=== PATIENT | female | born 1995 | race Caucasian/White ===

== ENCOUNTER 2018-06-27 11:06 | Inpatient (IN) | payer OTHER ==
[~2018-06-27] VITALS: Ht 170.2 cm; Wt 56.7 kg
[2018-06-27 12:16] LABS: ABSOLUTE BASOPHIL COUNT 0 /CUMM (0.0-0.2); ABSOLUTE EOSINOPHIL COUNT 0.1 /CUMM (0.0-0.7); ABSOLUTE LYMPH COUNT 0.8 /CUMM (1.2-3.4); ABSOLUTE MONOCYTE COUNT 1.5 /CUMM (0.10-0.60); BASOPHIL % 0.1 % (0.0-2.0); EOSINOPHIL % 0.7 % (0-5); GRANULOCYTE % 80.7 % (42.2-75.2); HEMATOCRIT 46.3 % (37-47); MEAN CORPUSCULAR HGB 29.6 PG (27.0-31.0); MEAN CORPUSCULAR HGB CONC 33.6 G/DL (33.0-37.0); MEAN CORPUSCULAR VOLUME 88.3 FL (81.0-99.0); MEAN PLATELET VOLUME 8.6 FL (7.4-10.4); PLATELET COUNT 266 /CUMM (130-400); RBC DISTRIBUTION WIDTH 12.2 % (11.5-14.5); RED BLOOD CELL CT 5.25 /CUMM (4.20-5.40); WHITE BLOOD CELL COUNT 12.4 /CUMM (4.8-10.8)
[2018-06-27] MEDS ORDERED: ZOFRAN ODT4 M1 SL (13:54)
--- NOTE | 2018-06-27 14:16 | CT SCAN REPORT ---
EXAMINATION: CT ABDOMEN AND PELVIS WITH CONTRAST CLINICAL INFORMATION: Diffuse abdominal pain, diarrhea, fever. Presumptive diagnosis: colitis or appendicitis COMPARISON: None TECHNIQUE: Multidetector volumetric imaging was performed of the abdomen and pelvis following IV administration of 95 mL of Optiray 320 intravenous contrast. Sagittal and coronal reformatted images were obtained on the technologist's workstation. DLP: 267 mGy-cm FINDINGS: LUNG BASES: 3 mm groundglass opacity nodule in the lateral periphery of the left lower lobe, image 89/736. 3 mm left lower lobe nodule in image 55/736. LIVER, GALLBLADDER, AND BILIARY TREE: The liver is normal in size, shape, and attenuation. No focal hepatic lesion or biliary ductal dilatation is present. The gallbladder is unremarkable with no evidence of radiopaque gallstones, gallbladder wall thickening, or obvious pericholecystic inflammatory changes. PANCREAS: Normal. SPLEEN: Normal. ADRENAL GLANDS: Normal. KIDNEYS AND URETERS: The kidneys are normal in size, shape, and attenuation. No hydronephrosis, hydroureter, or calculi seen. No perinephric stranding. BLADDER: Unremarkable. GASTROINTESTINAL TRACT: The stomach is largely collapsed. Small bowel nondilated. There is severe wall thickening of the right colon with adjacent pericolonic fluid. There is moderate to severe wall thickening throughout the remainder of the colon as far distally as the rectum. ABDOMINAL WALL: No significant hernia is appreciated. LYMPH NODES: Normal. VASCULAR: Unremarkable. PELVIC VISCERA: 3.4 cm likely physiologic right ovarian cyst. There is a small amount of free fluid in the pelvic cul-de-sac, that measures simple fluid density, presumably physiologic. Normal CT appearance of the uterus and ovaries. OSSEOUS STRUCTURES: Unremarkable. IMPRESSION: There is a pancolitis with severe wall thickening of the right colon and adjacent pericolonic fluid and slightly lesser moderate to severe wall thickening in the remainder of the colon is far distally as the rectum. The findings are nonspecific and could be infectious, inflammatory, or other etiologies. An antibiotic associated colitis could have this appearance. There are 2 small, 3 mm left lower lobe nodules, one of which is groundglass opacity. Without a history of known primary malignancy, these are almost certainly benign infectious or inflammatory nodules in a patient this age. Typically in the absence of a known history of primary malignancy, no follow-up is required.
--- NOTE | 2018-06-27 14:33 | ED GI/GU/ABDOMINAL COMPLAINT ---
History of Present Illness General Chief Complaint: Nausea, Vomiting, Diarrhea Stated Complaint: NVD Source: patient, family Exam Limitations: no limitations Vital Signs & Intake/Output Vital Signs & Intake/Output Vital Signs Date Time Temp Pulse Resp B/P B/P Pulse O2 O2 Flow FiO2 Mean Ox Delivery Rate 06/27 1538 98.2 56 18 109/66 100 Room Air 06/27 1331 98.4 55 18 101/58 100 Room Air 06/27 1133 96.8 86 18 106/70 98 Room Air Allergies Coded Allergies: lactose (INTOLERANT PER PT 06/27/18) Reconcile Medications Ondansetron (Zofran Odt) 4 MG TAB.RAPDIS 1 TAB SL TID PRN N/V (Reported) Triage Note: PT FROM HOME C/O [facility]A SINCE THURSDAY. PT STATES UNKNOWN AMOUNT OF EPISODE SINCE THEN, HAS BEEN IN [facility] AND UNKNOWN IF PICKED UP A "STOMACH BUG" PER PT. PT VSS. PTS MOTHER STATES SHE WAS SEEN AT A WALK IN CLINIC ON THURSDAY NIGHT WHERE SHE WAS TOLD HER BP WAS LOW, PT SEEN AT [place] AND D/C'D. PT ALSO STATES FEBRILE AT HOME, 96.8 IN TRIAGE. NO ACUTE DISTRESS NOTED. Triage Nurses Notes Reviewed? yes LMP (ages 10-50): unknown ? N Is pt currently ? No Onset: Abrupt Duration: day(s): (3-4), constant, continues in ED, getting worse Timing: single episode today Quality/Severity: cramping Severity Numbers: 7 Location: generalized abdomen Radiation: no radiation Activities at Onset: none Prior Abdominal Problems: similar symptoms Past Sexual History: Unobtainable at this time No Modifying Factors: none Associated Symptoms: abdominal pain, diarrhea HPI: 22-year-old female with no past medical history of present evaluation of abdominal pain and diarrhea. Patient states the pain started 4 days ago and been persistent. She reports the pain is located in the lower abdomen and does not radiate. Associated with watery diarrhea. No blood no melena. Patient reports nausea but no vomiting. She does report low-grade fevers at home revealed with Tylenol. She denies recent abdominal surgery, recent travel or recent antibiotics sick contacts. She does note that she has had similar symptoms on several occasions that she thinks may be related to IBS or lactose intolerance. She has never been seen for this. Past History Travel History Traveled to [place] past 21 day No Medical History Any Pertinent Medical History? see below for history Neurological: NONE EENT: NONE Cardiovascular: NONE Respiratory: NONE Gastrointestinal: NONE Hepatic: NONE Renal: NONE Musculoskeletal: NONE Psychiatric: NONE Endocrine: NONE Surgical History Surgical History: non-contributory Psychosocial History What is your primary language Bulgarian Tobacco Use: Never used Family History Hx Contributory? No Review of Systems Review of Systems Constitutional: Reports: fever, weakness. EENTM: Reports: no symptoms. Respiratory: Reports: no symptoms. Cardiovascular: Reports: no symptoms. GI: Reports: see HPI, abdominal pain, diarrhea, nausea. Genitourinary: Reports: no symptoms. Musculoskeletal: Reports: no symptoms. Skin: Reports: no symptoms. Neurological/Psychological: Reports: no symptoms. Hematologic/Endocrine: Reports: no symptoms. Immunologic/Allergic: Reports: no symptoms. All Other Systems: Reviewed and Negative Physical Exam Physical Exam General Appearance: well developed/nourished, no apparent distress, alert, awake , thin Head: atraumatic, normal appearance Eyes: Bilateral: normal appearance, PERRL, EOMI. Ears, Nose, Throat, Mouth: hearing grossly normal, moist mucous membrane Neck: normal inspection, supple, full range of motion Respiratory: normal breath sounds, chest non-tender, no respiratory distress, lungs clear Cardiovascular: regular rate/rhythm, normal peripheral pulses Peripheral Pulses: 2+ radial (R), 2+ radial (L) Gastrointestinal: normal bowel sounds, soft, no organomegaly, tenderness ( diffuse lower abdominal) Back: normal inspection, normal range of motion Extremities: normal range of motion Neurologic/Psych: no motor/sensory deficits, awake, alert, oriented x 3, normal gait, normal mood/affect Skin: intact, normal color, warm/dry Core Measures ACS in differential dx? No Sepsis Present: No Sepsis Focused Exam Completed? No Progress Differential Diagnosis: appendicitis, biliary colic, bowel obstruction, cholecystitis, diverticulitis, gastritis, ischemic bowel, inflamm bowel dis, intrauterine , kidney stone, ovarian cyst, ovarian torsion, pancreatitis, PID/cervicitis, peptic ulcer, PUD/GERD, SBO, UTI/pyelo Plan of Care: Orders Procedure Date/time Status Clear Liquid Diet 06/28 B Active BASIC ELECTROLYTES PLUS BUN&CR 06/28 0600 Active Lab Add-on Test 06/27 174 Active OVA AND PARASITE EXTENDED 06/27 1742 Active C.DIFFICILE 06/27 1742 Active Pathway - chart 06/27 1739 Active Patient Data 06/27 1739 Active ED Holding Orders 06/27 1714 Active Admit to inpatient 06/27 1714 Active Code Status 06/27 1714 Active Add-on Test (ER Only) 06/27 1656 Active CULTURE,STOOL 06/27 1656 Active OVA AND PARASITE ANTIGENS 06/27 1656 Active C.DIFFICILE 06/27 1656 Active Add-on Test (ER Only) 06/27 1507 Active Add-on Test (ER Only) 06/27 1246 Active LACTIC ACID 06/27 1200 Complete HUMAN BETA HCG SCREEN 06/27 1200 Complete C-REACTIVE PROTEIN 06/27 1200 Complete URINE 06/27 1113 Complete URINALYSIS 06/27 1113 Complete LIPASE 06/27 1113 Complete COMPREHENSIVE METABOLIC PANEL 06/27 1113 Complete CBC WITHOUT DIFFERENTIAL 06/27 1113 Complete House Staff 06/27 UNK Active VTE Mechanical Prophylaxis 06/27 UNK Active Vital Signs 06/27 UNK Active Current Medications Sig/Donal Start time Last Medication Dose Stop Time Status Admin Enoxaparin Sodium 40 MG DAILY 06/28 0900 UNVr (Lovenox) Metronidazole 500 MG IQ8 06/28 0000 UNVr (Flagyl) N/A 1 UNIT (No Carrier) Ciprofloxacin 400 MG Q12 06/27 2100 UNVr (Cipro) Dextrose/Water 200 ML (D5W) Acetaminophen 650 MG Q6P PRN 06/27 1745 UNVr (Tylenol) Dicyclomine HCl 20 MG 4 TIMES/DAY PRN 06/27 1745 UNVr (Bentyl) Polyethylene Glycol 1 GAL ONCE ONE 06/27 174 UNVr (Golytely Liq 4000 06/27 1746 Ml) Laboratory Tests 06/27/18 1454: Urine Color YEL, Urine Clarity CLEAR, Urine pH 7.0, Ur Specific [place] <= 1.005 , Urine Protein TRACE H, Urine Ketones 40 H, Urine Nitrite NEG, Urine Bilirubin NEG, Urine Urobilinogen 0.2, Ur Leukocyte Esterase NEG, Ur Microscopic SEDIMENT EXAMINED, Urine RBC RARE, Ur Epithelial Cells MOD H, Urine Hemoglobin NEG, Urine Glucose NEG, Urine Test NEGATIVE 06/27/18 1200: Lactic Acid 1.0 06/27/18 1200: Anion Gap 14, Estimated GFR > 60, BUN/Creatinine Ratio 7.5, Glucose 89, Calcium 9.0, Total Bilirubin 1.0, AST 14, ALT 25, Alkaline Phosphatase 54, C-Reactive Prot, Quant > 9.0 H, Total Protein 6.6, Albumin 3.9, Globulin 2.7, Albumin/ Globulin Ratio 1.4, Lipase 36, Total Beta HCG NEGATIVE, CBC w Diff NO MAN DIFF REQ, RBC 5.25, MCV 88.3, MCH 29.6, MCHC 33.6, RDW 12.2, MPV 8.6, Gran % 80.7 H, Lymphocytes % 6.7 L, Monocytes % 11.8 H, Eosinophils % 0.7, Basophils % 0.1, Absolute Granulocytes 10.0 H, Absolute Lymphocytes 0.8 L, Absolute Monocytes 1.5 H, Absolute Eosinophils 0.1, Absolute Basophils 0 Microbiology 06/27 1656 STOOL: Cryptosporidium Antigen - ORD 06/27 1656 STOOL: Giardia Antigen (LAKESHIA) - ORD 06/27 1656 STOOL: Clostridium difficile Toxin A & B - ORD 06/27 1656 STOOL: Stool Culture - ORD Patient is here for evaluation of lower abdominal pain and diarrhea symptoms started 4 days prior to be getting worse. She is afebrile here vital signs are stable. Labs CT scan ordered patient medicated with fluids Zofran and Toradol. Labs a white count of 12,000 and a slightly decreased potassium at 3.4 otherwise they're unremarkable. CT scan shows a severe pancolitis. No abscess or perforation. Spoke with Dr. Mendez from gastroenterology who feels the patient needs a urgent scope. The patient will be admitted to the hospital for IV fluids and serial labs stool cultures and colonoscopy. Case discussed Dr. BAER HE agrees Diagnostic Imaging: Viewed by Me: CT Scan. Discussed w/RAD: CT Scan. Radiology Impression: PATIENT: CHARY TERESA PRESENT AGE: 22 PATIENT ACCOUNT NO: [id number] : 94 LOCATION: [facility] ORDERING PHYSICIAN: Tomás EWING SERVICE DATE: 06/27/18 EXAM TYPE: CAT - CT ABD & PELVIS W IV CONTRAST EXAMINATION: CT ABDOMEN AND PELVIS WITH CONTRAST CLINICAL INFORMATION: Diffuse abdominal pain, diarrhea, fever. Presumptive diagnosis: colitis or appendicitis COMPARISON: None TECHNIQUE: Multidetector volumetric imaging was performed of the abdomen and pelvis following IV administration of 95 mL of Optiray 320 intravenous contrast. Sagittal and coronal reformatted images were obtained on the technologist's workstation. DLP: 267 mGy-cm FINDINGS: LUNG BASES: 3 mm groundglass opacity nodule in the lateral periphery of the left lower lobe, image 89/736. 3 mm left lower lobe nodule in image 55/736. LIVER, GALLBLADDER, AND BILIARY TREE: The liver is normal in size, shape, and attenuation. No focal hepatic lesion or biliary ductal dilatation is present. The gallbladder is unremarkable with no evidence of radiopaque gallstones, gallbladder wall thickening, or obvious pericholecystic inflammatory changes. PANCREAS: Normal. SPLEEN: Normal. ADRENAL GLANDS: Normal. KIDNEYS AND URETERS: The kidneys are normal in size, shape, and attenuation. No hydronephrosis, hydroureter, or calculi seen. No perinephric stranding. BLADDER: Unremarkable. GASTROINTESTINAL TRACT: The stomach is largely collapsed. Small bowel nondilated. There is severe wall thickening of the right colon with adjacent pericolonic fluid. There is moderate to severe wall thickening throughout the remainder of the colon as far distally as the rectum. ABDOMINAL WALL: No significant hernia is appreciated. LYMPH NODES: Normal. VASCULAR: Unremarkable. PELVIC VISCERA: 3.4 cm likely physiologic right ovarian cyst. There is a small amount of free fluid in the pelvic cul-de-sac, that measures simple fluid density, presumably physiologic. Normal CT appearance of the uterus and ovaries. OSSEOUS STRUCTURES: Unremarkable. IMPRESSION: There is a pancolitis with severe wall thickening of the right colon and adjacent pericolonic fluid and slightly lesser moderate to severe wall thickening in the remainder of the colon is far distally as the rectum. The findings are nonspecific and could be infectious, inflammatory, or other etiologies. An antibiotic associated colitis could have this appearance. There are 2 small, 3 mm left lower lobe nodules, one of which is groundglass opacity. Without a history of known primary malignancy, these are almost certainly benign infectious or inflammatory nodules in a patient this age. Typically in the absence of a known history of primary malignancy, no follow-up is required. DICTATED BY: Eduardo Hair MD DATE/TIME DICTATED:06/27/181401 SENIOR PHYSICIAN:EDSON DATE/TIME TRANSCRIBED:1401 CONFIDENTIAL, DO NOT COPY WITHOUT APPROPRIATE AUTHORIZATION. < Electronically signed in Other Vendor System> Initial ED EKG: none Departure Departure Disposition: STILL A PATIENT Condition: Stable Clinical Impression Primary Impression: Pancolitis Referrals: Unknown (PCP/Family) Departure Forms: Customer Survey General Discharge Information Admission Note Spoke With: Susan SALAZAR,[place] Documentation of Exam: Documentation of any treatments & extenuating circumstances including Concerns Regarding Discharge (functional status, medication knowledge or non-compliance, living conditions, etc.) that warrant an admission rather than observation: [GI consult, serial labs, clears, colonoscopy, stool cultures, IV fluids]
--- NOTE | 2018-06-27 17:05 | History & Physical ---
Shahrzad SALAZAR,[facility] 06/27/18 2361: General Information and HPI History of Present Illness: Ms. Teresa is a 22-year-old female with no past medical history who presents with diarrhea. Patient says that her diarrhea began and initially was a headache but progressed to weakness, dizziness, and diarrhea about 5-6 times a day. Diarrhea is nonbloody, watery, light colored at times, and sometimes floating. Over the past few years she has had frequent episodes of diarrhea that usually last less than one day but occur 2-3 times a week. She did go to an urgent care clinic on Thursday . She was given antinausea medication and sent home. The urgent care clinic then called her at home later that evening because they forgot to look at the blood pressure and noted that it was low. They told her to go to the ER for further evaluation and so they went to [place]. However, at [place] that he did not receive any intervention and was discharged from the ER early Thursday morning. Thursday, she spent sleeping most the day continuing to have diarrhea. She has had poor p.o. intake. She then came in today for further evaluation. She denies any chest pain, shortness of breath, dysuria, or rash. She is a never smoker, drinks alcohol socially. Past History Travel History Traveled to [place] past 21 day No Medical History Neurological: NONE EENT: NONE Cardiovascular: NONE Respiratory: NONE Gastrointestinal: NONE Hepatic: NONE Renal: NONE Musculoskeletal: NONE Psychiatric: NONE Endocrine: NONE Review of Systems Review of Systems Constitutional: Reports: no symptoms. EENTM: Reports: no symptoms. Cardiovascular: Reports: no symptoms. Respiratory: Reports: no symptoms. GI: Reports: see HPI. Genitourinary: Reports: no symptoms. Musculoskeletal: Reports: no symptoms. Skin: Reports: no symptoms. Neurological/Psychological: Reports: no symptoms. Hematologic/Endocrine: Reports: no symptoms. Immunologic/Allergic: Reports: no symptoms. All Other Systems: Reviewed and Negative Exam & Diagnostic Data Physical Exam General Appearance Alert, Oriented X3, Cooperative Cardiovascular Regular Rate, Normal S1, Normal S2 Lungs Clear to Auscultation Abdomen umbilical tenderness without rebound Extremities No Edema, Normal Pulses, No Tenderness/Swelling Last 24 Hrs of Labs/Abdulaziz: Laboratory Tests 06/27/18 1454: Urine Color YEL, Urine Clarity CLEAR, Urine pH 7.0, Ur Specific [place] <= 1.005 , Urine Protein TRACE H, Urine Ketones 40 H, Urine Nitrite NEG, Urine Bilirubin NEG, Urine Urobilinogen 0.2, Ur Leukocyte Esterase NEG, Ur Microscopic SEDIMENT EXAMINED, Urine RBC RARE, Ur Epithelial Cells MOD H, Urine Hemoglobin NEG, Urine Glucose NEG, Urine Test NEGATIVE 06/27/18 1200: Lactic Acid 1.0 06/27/18 1200: Anion Gap 14, Estimated GFR > 60, BUN/Creatinine Ratio 7.5, Glucose 89, Calcium 9.0, Total Bilirubin 1.0, AST 14, ALT 25, Alkaline Phosphatase 54, C-Reactive Prot, Quant > 9.0 H, Total Protein 6.6, Albumin 3.9, Globulin 2.7, Albumin/ Globulin Ratio 1.4, Lipase 36, Total Beta HCG NEGATIVE, CBC w Diff NO MAN DIFF REQ, RBC 5.25, MCV 88.3, MCH 29.6, MCHC 33.6, RDW 12.2, MPV 8.6, Gran % 80.7 H, Lymphocytes % 6.7 L, Monocytes % 11.8 H, Eosinophils % 0.7, Basophils % 0.1, Absolute Granulocytes 10.0 H, Absolute Lymphocytes 0.8 L, Absolute Monocytes 1.5 H, Absolute Eosinophils 0.1, Absolute Basophils 0 Microbiology 06/27 1742 STOOL: Ova and Parasite Macroscopic Exam - ORD 06/27 1742 STOOL: Clostridium difficile Toxin A & B - ORD 06/27 1656 STOOL: Cryptosporidium Antigen - ORD 06/27 1656 STOOL: Giardia Antigen (ABDULAZIZ) - ORD 06/27 1656 STOOL: Clostridium difficile Toxin A & B - ORD 06/27 1656 STOOL: Stool Culture - ORD Assessment/Plan Assessment: Ms. Teresa is a 22-year-old female with no past medical history who presents with diarrhea. Patient says that her diarrhea began and initially was a headache but progressed to weakness, dizziness, and diarrhea about 5-6 times a day. On presentation, vital signs were T 96.8, HR 86, RR 18, BP 106/70, saturating 80 % on room air. Laboratories were significant for white blood cell count 12.4, fasting 3.4, negative LFTs, negative beta hCG, lipase 36, negative urinalysis. CT showed pancolitis. She will be admitted to general medicine and treated for the following problems: 1. Pancolitis 2. Diarrhea 3. Incidental pulmonary nodules #Pancolitis: Patient presents with acute diarrhea in setting of chronic diarrheal symptoms and CT imaging of pancolitis. Given her history, there is concern for inflammatory bowel disease such as Crohn's or ulcerative colitis but celiac disease or infectious process remains on the differential. She does have nodules in her lung, which given her age are very unlikely to be malignant but could be inflammatory or infectious in nature. -GI consult -Stool culture -Lactoferrin, Kwadwo protectant -Ova and parasites -Clear liquid diet -N.p.o. after midnight -GoLYTELY 1 gallon -Dicyclomine 20 mg 4 times a day as needed GI upset -ciproFloxin and metronidazole -Consider pulmonary consult DVT prophylaxis with enoxaparin Clear liquid diet Full code As Ranked By This Provider Problem List: 1. Pancolitis Core Measures/Misc (08/16) Acute Coronary Syndrome ACS Diagnosis: No Congestive Heart Failure Congestive Heart Failure Diagnosis No Cerebrovascular Accident CVA/TIA Diagnosis: No VTE (View Protocol) VTE Risk Factors Age>40 No Mechanical VTE Prophylaxis d/t N/A MechProphylax Ordered No VTE Pharm Prophylaxis d/t NA PharmProphylax ordered Sepsis (View protocol) Sepsis Present: No If YES complete Sepsis Event Note If YES complete Sepsis Event Note Jadyn SALAZARSharon 06/28/18 0414: General Information and HPI Statement: I have seen and personally examined CHARY TERESA and documented this H&P. The patient is a 22 year old F who presented with a patient stated chief complaint of [diarrhea]. 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 Exam & Diagnostic Data Last 24 Hrs of Vital Signs/I&O Vital Signs Date Time Temp Pulse Resp B/P B/P Pulse O2 O2 Flow FiO2 Mean Ox Delivery Rate 06/27 1951 99.8 60 20 116/60 100 Room Air 06/27 1752 99.9 62 18 117/59 100 Room Air 06/27 1538 98.2 56 18 109/66 100 Room Air 06/27 1331 98.4 55 18 101/58 100 Room Air 06/27 1133 96.8 86 18 106/70 98 Room Air Intake & Output 06/28 0800 06/28 0000 06/27 1600 Intake Total 420 1000 Output Total Balance 420 1000 Intake, IV 300 1000 Intake, Oral 120 Number 6 1 Bowel Movements Patient 125 lb 125 lb Weight Weight Reported by Patient Reported by Patient Measurement Method Physical Exam General Appearance Alert, Oriented X3, Cooperative Skin No Rashes, No Breakdown HEENT Atraumatic, PERRLA, EOMI Neck Supple, No JVD Lymphatic Axillary nl, Cervical nl Cardiovascular Regular Rate, Normal S1, Normal S2 Lungs Clear to Auscultation, Normal Air Movement Abdomen Lower abdominal deep palpation tenderness Neurological Normal Speech Extremities No Edema, Normal Pulses, No Tenderness/Swelling Last 24 Hrs of Labs/Abdulaziz: Laboratory Tests 06/27/18 1454: Urine Color YEL, Urine Clarity CLEAR, Urine pH 7.0, Ur Specific [place] <= 1.005 , Urine Protein TRACE H, Urine Ketones 40 H, Urine Nitrite NEG, Urine Bilirubin NEG, Urine Urobilinogen 0.2, Ur Leukocyte Esterase NEG, Ur Microscopic SEDIMENT EXAMINED, Urine RBC RARE, Ur Epithelial Cells MOD H, Urine Hemoglobin NEG, Urine Glucose NEG, Urine Test NEGATIVE 06/27/18 1200: Lactic Acid 1.0 06/27/18 1200: Anion Gap 14, Estimated GFR > 60, BUN/Creatinine Ratio 7.5, Glucose 89, Calcium 9.0, Total Bilirubin 1.0, AST 14, ALT 25, Alkaline Phosphatase 54, C-Reactive Prot, Quant > 9.0 H, Total Protein 6.6, Albumin 3.9, Globulin 2.7, Albumin/ Globulin Ratio 1.4, Lipase 36, Total Beta HCG NEGATIVE, CBC w Diff NO MAN DIFF REQ, RBC 5.25, MCV 88.3, MCH 29.6, MCHC 33.6, RDW 12.2, MPV 8.6, Gran % 80.7 H, Lymphocytes % 6.7 L, Monocytes % 11.8 H, Eosinophils % 0.7, Basophils % 0.1, Absolute Granulocytes 10.0 H, Absolute Lymphocytes 0.8 L, Absolute Monocytes 1.5 H, Absolute Eosinophils 0.1, Absolute Basophils 0 Microbiology 06/27 2100 STOOL: Cryptosporidium Antigen - RECD 06/27 2100 STOOL: Giardia Antigen (ABDULAZIZ) - RECD 06/27 2100 STOOL: Clostridium difficile Toxin A & B - RECD 06/27 2100 STOOL: Stool Culture - RECD 06/27 1742 STOOL: Ova and Parasite Macroscopic Exam - CAN Cancelled: DUPLICATE ORDER 06/27 1742 STOOL: Clostridium difficile Toxin A & B - CAN Cancelled: DUPLCATE ORDER Core Measures/Misc (08/16) Sepsis (View protocol) If YES complete Sepsis Event Note If YES complete Sepsis Event Note Attending MD Review Statement Attending Statement Attending MD Statement: examined this patient, discuss w/resident/PA/SLOPE HOIST OPERATOR, agreed w/resident/PA/SLOPE HOIST OPERATOR, amended to note Attending Assessment/Plan: This patient is a 22 year old female with a past medical history significant for lactose intolerance came to the ED with diarrhea that started 4 days prior to admission. She was in her usual state of health up until 4 days prior to admission when she started to feel dizzy and weak then had her first episode of diarrhea. The first episode of diarrhea was soft, then as the days went on, became more watery and frequent with up to 5-8 stools a day. She states she had associated fever, chills, and cold sweats. She has experienced similar symptoms in the past, including feeling dizzy, weak, then having one episode of diarrhea but no fevers. Significant finding upon evaluation in the ED included a low grade temp of 99.9F, white blood cell count 12.4, negative beta hCG, negative urinalysis, CT ABd/Pelvis - There is a pancolitis with severe wall thickening of the right colon and adjacent pericolonic fluid and slightly lesser moderate to severe wall thickening in the remainder of the colon is far distally as the rectum (Incidental finding - There are 2 small, 3 mm left lower lobe nodules, one of which is groundglass opacity). Admit to general medicine, R/O inflammatory bowel disease, celiac disease or infectious process. GI consult ( complete) prep for colonoscopy. Consider pulmonary consult.
--- NOTE | 2018-06-27 17:12 | Cons- Gastroenterology ---
General Information and HPI Consulting Request Date of Consult: 06/27/18 Requested By: KAYLIN Galan Eric Reason for Consult: 1. Abdominal Pain 2. Diarrhea 3. Abnormal CT Scan 4. Colitis Source of Information: patient Exam Limitations: no limitations History of Present Illness: Ms. Jacome is a 22 year old female with a long standing history of gastrointestinal complaints. She has for many years had frequent diarrhea with associated lower abdominal pain after eating. However, since she has had multiple loose, nonbloody, stools associated with severe suprapubic and lower abdominal pain that comes in waves. She has been unable to tolerate much in the way of solid food due to the diarrhea and abdominal pain. She also has had temperatures as high as 101 degrees F. She has had no nausea or vomiting. She does not have a family history of inflammatory bowel disease but her brother was diagnosed with colitis about one year ago, but when he had repeat colonoscopy in [place], where he is a student, he was told that he did not have that disease. She has had no arthritis type symptoms and denies any visual disturbances, eye pain or changes in the appearance of her eyes. She has had no skin rashes. On admission to the [place] ED she had a CT Scan of the abdomen and pelvis which showed the following: FINDINGS: LUNG BASES: 3 mm groundglass opacity nodule in the lateral periphery of the left lower lobe, image 89/736. 3 mm left lower lobe nodule in image 55/736. LIVER, GALLBLADDER, AND BILIARY TREE: The liver is normal in size, shape, and attenuation. No focal hepatic lesion or biliary ductal dilatation is present. The gallbladder is unremarkable with no evidence of radiopaque gallstones, gallbladder wall thickening, or obvious pericholecystic inflammatory changes. PANCREAS: Normal. SPLEEN: Normal. ADRENAL GLANDS: Normal. KIDNEYS AND URETERS: The kidneys are normal in size, shape, and attenuation. No hydronephrosis, hydroureter, or calculi seen. No perinephric stranding. BLADDER: Unremarkable. GASTROINTESTINAL TRACT: The stomach is largely collapsed. Small bowel nondilated. There is severe wall thickening of the right colon with adjacent pericolonic fluid. There is moderate to severe wall thickening throughout the remainder of the colon as far distally as the rectum. ABDOMINAL WALL: No significant hernia is appreciated. LYMPH NODES: Normal. VASCULAR: Unremarkable. PELVIC VISCERA: 3.4 cm likely physiologic right ovarian cyst. There is a small amount of free fluid in the pelvic cul-de-sac, that measures simple fluid density, presumably physiologic. Normal CT appearance of the uterus and ovaries. OSSEOUS STRUCTURES: Unremarkable. IMPRESSION: There is a pancolitis with severe wall thickening of the right colon and adjacent pericolonic fluid and slightly lesser moderate to severe wall thickening in the remainder of the colon is far distally as the rectum. The findings are nonspecific and could be infectious, inflammatory, or other etiologies. An antibiotic associated colitis could have this appearance. There are 2 small, 3 mm left lower lobe nodules, one of which is groundglass opacity. Without a history of known primary malignancy, these are almost certainly benign infectious or inflammatory nodules in a patient this age. Typically in the absence of a known history of primary malignancy, no follow-up is required. Allergies/Medications Allergies: Coded Allergies: lactose (INTOLERANT PER PT 06/27/18) Home Med List: Ondansetron (Zofran Odt) 4 MG TAB.RAPDIS 1 TAB SL TID PRN N/V (Reported) Past History Travel History Traveled to [place] past 21 day No Medical History Neurological: NONE EENT: NONE Cardiovascular: NONE Respiratory: NONE Gastrointestinal: NONE Hepatic: NONE Renal: NONE Musculoskeletal: NONE Psychiatric: NONE Endocrine: NONE Surgical History Surgical History: none Review of Systems Review of Systems Constitutional: Denies: chills, fever, malaise, weakness. EENTM: Reports: no symptoms. Cardiovascular: Reports: no symptoms. Respiratory: Reports: no symptoms. GI: Reports: see HPI. Genitourinary: Reports: no symptoms. Musculoskeletal: Reports: no symptoms. Skin: Reports: no symptoms. Neurological/Psychological: Reports: no symptoms. Hematologic/Endocrine: Reports: no symptoms. Exam & Diagnostic Data Vital Signs and I&O Vital Signs Date Time Temp Pulse Resp B/P B/P Pulse O2 O2 Flow FiO2 Mean Ox Delivery Rate 06/27 1538 98.2 56 18 109/66 100 Room Air 06/27 1331 98.4 55 18 101/58 100 Room Air 06/27 1133 96.8 86 18 106/70 98 Room Air Intake & Output 06/27 1600 06/27 0400 06/26 0400 06/25 1600 06/25 0400 Intake Total 1000 Output Total Balance 1000 Intake, IV 1000 Number 1 Bowel Movements Patient 125 lb Weight Weight Reported by Patient Measurement Method Physical Exam General Appearance: moderate distress, thin Head: atraumatic, normal appearance Eyes: Bilateral: normal appearance, EOMI. Ears, Nose, Throat: hearing grossly normal Neck: normal inspection, supple, full range of motion Respiratory: normal breath sounds, chest non-tender, no respiratory distress, lungs clear Cardiovascular: regular rate/rhythm, Normal S1 and S2 without rub, murmur or gallop. Gastrointestinal: normal bowel sounds, soft, non-tender, no organomegaly Back: normal inspection Extremities: normal inspection, no edema Neurologic/Psych: alert, oriented x 3, normal mood/affect Skin: intact, normal color, warm/dry Results Pertinent Lab Results: Laboratory Tests 06/27 06/27 1454 1200 Chemistry Lactic Acid (0.7 - 2.1 mmol/L) 1.0 Urines Urine Color (YEL,AMB,STR) YEL Urine Clarity (CLEAR) CLEAR Urine pH (5.0 - 8.0) 7.0 Ur Specific [place] (1.001 - 1.035) <= 1.005 Urine Protein (NEG,<30 MG/DL) TRACE H Urine Ketones (NEG) 40 H Urine Nitrite (NEG) NEG Urine Bilirubin (NEG) NEG Urine Urobilinogen (0.1 - 1.0 EU/dl) 0.2 Ur Leukocyte Esterase (NEG) NEG Ur Microscopic SEDIMENT EXAMINED Urine RBC (0 - 5 /HPF) RARE Ur Epithelial Cells (NONE,FEW) MOD H Urine Hemoglobin (NEG) NEG Urine Glucose (N MG/DL) NEG Urine Test NEGATIVE 06/27 1200 Chemistry Sodium (137 - 145 mmol/L) 138 Potassium (3.5 - 5.1 mmol/L) 3.4 L Chloride (98 - 107 mmol/L) 96 L Carbon Dioxide (22 - 30 mmol/L) 28 Anion Gap (5 - 16) 14 BUN (7 - 17 mg/dL) 6 L Creatinine (0.5 - 1.0 mg/dL) 0.8 Estimated GFR (>60 ml/min) > 60 BUN/Creatinine Ratio (7 - 25 %) 7.5 Glucose (65 - 99 mg/dL) 89 Calcium (8.4 - 10.2 mg/dL) 9.0 Total Bilirubin (0.2 - 1.3 mg/dL) 1.0 AST (14 - 36 U/L) 14 ALT (9 - 52 U/L) 25 Alkaline Phosphatase (<127 U/L) 54 Total Protein (6.3 - 8.2 g/dL) 6.6 Albumin (3.5 - 5.0 g/dL) 3.9 Globulin (1.9 - 4.2 gm/dL) 2.7 Albumin/Globulin Ratio (1.1 - 2.2 %) 1.4 Lipase (23 - 300 U/L) 36 Total Beta HCG (NEGATIVE) NEGATIVE Hematology CBC w Diff NO MAN DIFF REQ WBC (4.8 - 10.8 /CUMM) 12.4 H RBC (4.20 - 5.40 /CUMM) 5.25 Hgb (12.0 - 16.0 G/DL) 15.6 Hct (37 - 47 %) 46.3 MCV (81.0 - 99.0 FL) 88.3 MCH (27.0 - 31.0 PG) 29.6 MCHC (33.0 - 37.0 G/DL) 33.6 RDW (11.5 - 14.5 %) 12.2 Plt Count (130 - 400 /CUMM) 266 MPV (7.4 - 10.4 FL) 8.6 Gran % (42.2 - 75.2 %) 80.7 H Lymphocytes % (20.5 - 51.1 %) 6.7 L Monocytes % (1.7 - 9.3 %) 11.8 H Eosinophils % (0 - 5 %) 0.7 Basophils % (0.0 - 2.0 %) 0.1 Absolute Granulocytes (1.4 - 6.5 /CUMM) 10.0 H Absolute Lymphocytes (1.2 - 3.4 /CUMM) 0.8 L Absolute Monocytes (0.10 - 0.60 /CUMM) 1.5 H Absolute Eosinophils (0.0 - 0.7 /CUMM) 0.1 Absolute Basophils (0.0 - 0.2 /CUMM) 0 Imaging/Other Studies: FINDINGS: LUNG BASES: 3 mm groundglass opacity nodule in the lateral periphery of the left lower lobe, image 89/736. 3 mm left lower lobe nodule in image 55/736. LIVER, GALLBLADDER, AND BILIARY TREE: The liver is normal in size, shape, and attenuation. No focal hepatic lesion or biliary ductal dilatation is present. The gallbladder is unremarkable with no evidence of radiopaque gallstones, gallbladder wall thickening, or obvious pericholecystic inflammatory changes. PANCREAS: Normal. SPLEEN: Normal. ADRENAL GLANDS: Normal. KIDNEYS AND URETERS: The kidneys are normal in size, shape, and attenuation. No hydronephrosis, hydroureter, or calculi seen. No perinephric stranding. BLADDER: Unremarkable. GASTROINTESTINAL TRACT: The stomach is largely collapsed. Small bowel nondilated. There is severe wall thickening of the right colon with adjacent pericolonic fluid. There is moderate to severe wall thickening throughout the remainder of the colon as far distally as the rectum. ABDOMINAL WALL: No significant hernia is appreciated. LYMPH NODES: Normal. VASCULAR: Unremarkable. PELVIC VISCERA: 3.4 cm likely physiologic right ovarian cyst. There is a small amount of free fluid in the pelvic cul-de-sac, that measures simple fluid density, presumably physiologic. Normal CT appearance of the uterus and ovaries. OSSEOUS STRUCTURES: Unremarkable. IMPRESSION: There is a pancolitis with severe wall thickening of the right colon and adjacent pericolonic fluid and slightly lesser moderate to severe wall thickening in the remainder of the colon is far distally as the rectum. The findings are nonspecific and could be infectious, inflammatory, or other etiologies. An antibiotic associated colitis could have this appearance. There are 2 small, 3 mm left lower lobe nodules, one of which is groundglass opacity. Without a history of known primary malignancy, these are almost certainly benign infectious or inflammatory nodules in a patient this age. Typically in the absence of a known history of primary malignancy, no follow-up is required. Assessment/Plan Assessment/Recommendations: ASSESSMENT: 1. Abdominal Pain 2. Abnormal CT Scan of the Abdomen, Suggestive of Inflammatory Bowel Disease 3. Leukocytosis 4. Diarrhea Given that Ms. Jacome has had the same abdominal pain and diarrhea for at least 3 or more years which has worsened over the past several days is suggestive of inflammatory bowel disease. Although she thinks it may have been due to food she ate at her dorm in [facility], no one else she knows there is sick. RECOMMENDATIONS: Admit to [facility]. Discussed at length with patient and parents regarding admission versus outpatient workup. They would feel more comfortable with inpatient evaluation. 1. Check CRP, Stool for O&P, Lactoferrin, fecal calprotectin, stool for C&S, C. Diff Toxin 2. Start Cipro 500 mg IV BID and Flagyl 500 mg IV TID 3. Clear Liquid Diet 4. Start Golytely now. Given 2 liters. 5. On Thursday given GoLYTELY 2 liters at 4 a.m. 6. NPO after 2nd liters for Colonoscopy on Thursday. 7. Bentyl 10-20 mg PO QID prn Consult Acknowledgment - Thank you for your consult request.
[2018-06-27 19:51] VITALS: BP 116/60
--- NOTE | 2018-06-28 03:59 | Event Note ---
Event Note Event Note: We were called in by the nurse to evaluate the patient who was feeling that he "throat is closing up" after drinking golytely for preparation for her colonoscopy due tomorrow. She was admitted to the floor for persistent diarrhea with her CT scan revealing pancolitis. On seeing the patient, her vitals were stable. She appeared to be in mild distress, almost tearful and confessed to feeling scared about what might be going on with her. She said that her throat has been "closing up" for about 40min and she is finding it hard to swallow. Patient, however , was sipping on Jennie tina with no complaints while I was in the room. She did not report difficulty breathing, SOB, palpitations, itching or rash. Per the nurse, the patient was very tearful when her mother came to see her earlier in the day because she was anxious about her current condition. On discussion with , we agreed to observe her and reassess her in about 30min, requesting the nurse to closely monitor her vitals. However, we were called in by the nurse with the patient feeling her throat "closing up" as soon as she attempeted to drink golytel again. She refused to try drinking anymore of it after this. We prescribed a one time Benadryl 50mg after which she said her throat is not closing up anymore but she still feels a lump in her throat as she swallows. She refused to complete her bowel prep, however. The nurse called in again to report mild questionable 'hallucinations' wherein she called in the nurse to check for 'blood coming out if her iv'. The nurse went in and checked to see that there was no blood. We will continously monitor her.
[2018-06-28 07:04] VITALS: BP 96/66
--- NOTE | 2018-06-28 08:09 | PN- Housestaff ---
See Addendum Subjective Follow-up For: diarrhea Complaints: diarrhea unable to tolerate GoLytely Subjective: Patient reports that during the night she was not able to tolerate GoLytely and felt her throat was closing off. This made her anxious. She received benadryl and eventually her sx resolved. She continues to have multiple non bloody BMs. Denies fever, chills, n/v, chest pain, SOB. Review of Systems Constitutional: Reports: see HPI. Objective Last 24 Hrs of Vital Signs/I&O Vital Signs Date Time Temp Pulse Resp B/P B/P Pulse O2 O2 Flow FiO2 Mean Ox Delivery Rate 06/28 1418 98.5 67 18 96/58 99 Room Air 06/28 0704 99.7 68 20 96/66 100 Room Air 06/27 1951 99.8 60 20 116/60 100 Room Air 06/27 1752 99.9 62 18 117/59 100 Room Air 06/27 1538 98.2 56 18 109/66 100 Room Air Intake & Output 06/28 1600 06/28 0800 06/28 0000 Intake Total 120 800 420 Output Total Balance 120 800 420 Intake, IV 800 300 Intake, Oral 120 120 Number 9 6 Bowel Movements Patient 125 lb Weight Weight Reported by Patient Measurement Method Physical Exam General Appearance: Alert, Oriented X3, Cooperative, No Acute Distress Skin: No Rashes Skin Temp/Moisture Exam: Warm/Dry HEENT: Atraumatic, PERRLA Neck: Supple Cardiovascular: Regular Rate, Normal S1, Normal S2, No Murmurs Lungs: Clear to Auscultation Abdomen: Normal Bowel Sounds, Soft, No Tenderness Extremities: No Edema, Normal Pulses Assessment/Plan Assessment: Ms. Jacome is a 22-year-old female with no past medical history who presents with diarrhea. Patient says that her diarrhea began and initially was a headache but progressed to weakness, dizziness, and diarrhea about 5-6 times a day. On presentation, vital signs were T 96.8, HR 86, RR 18, BP 106/70, saturating 80 % on room air. Laboratories were significant for white blood cell count 12.4, fasting 3.4, negative LFTs, negative beta hCG, lipase 36, negative urinalysis. CT showed pancolitis. She will be admitted to general medicine and treated for the following problems: 1. Pancolitis 2. Diarrhea 3. Incidental pulmonary nodules 4. Hypokalemia #Pancolitis: Patient presents with acute diarrhea in setting of chronic diarrheal symptoms and CT imaging of pancolitis. Given her history, there is concern for inflammatory bowel disease such as Crohn's or ulcerative colitis but celiac disease or infectious process remains on the differential. She does have nodules in her lung, which given her age are very unlikely to be malignant but could be inflammatory or infectious in nature. -GI consult-aware patient did not tolerate GoLytely which delayed colonoscopy today; will give enemas and proceed with procedure -Stool culture -Lactoferrin, Kwadwo protectant -Ova and parasites -Clear liquid diet -Dicyclomine 20 mg 4 times a day as needed GI upset -ciproFloxin and metronidazole -Consider pulmonary consult: will have patient follow up as an outpatient for this. #Hypokalemia-likely 2/2 multiple days of diarrhea -replete with 60mEq K-dur -continue to monitor DVT prophylaxis with enoxaparin Clear liquid diet Full code Problem List: 1. Pancolitis 2. Diarrhea Pain Ratin Pain Location: none Pain Goal: Remain pain free Pain Plan: see a/p Tomorrow's Labs & Rationales: bep
[2018-06-28 14:18] VITALS: BP 96/58
--- NOTE | 2018-06-28 16:24 | Proc Note Colonoscopy ---
Colonoscopy Procedure Medical History: unchanged Mental Status: alert/oriented Heart/Lung Eval Prior to Sedation: within normal limits Candidate for Sedation? Yes Date of Last Colonoscopy: Baseline Colonoscopy Procedure Date: 06/28/18 Procedure Type: colonoscopy w/biopsy Chips Screen Tender: MD Kerns Deborah E. ASA Classification: I Indications: 1. Abdominal Pain 2. Diarrhea Instrument (Colonoscope): single channel Meds Received: MAC Patient's Tolerance: good Complications: none Extent Reached: cecum Prep: good Procedure: The patient took a split dose colonic preparation after which they were NPO for an appropriate time prior to procedure. Note: Informed consent was obtained prior to procedure. Risks and benefits of procedure were discussed with patient. Potential complications discussed included perforation, bleeding, abdominal pain, and adverse reaction to medications. It was explained that iany or all of these complications could result in the need for extended hospitalization, emergency surgery, transfusion of packed red blood cells (with the risk of HIV or hepatitis virus), intubation with mechanical ventilation, and possible need for antibiotics. It was further explained that an existing tumor polyp or mucosal abnormality might not be identified at the time of the procedure thus resulting in a missed opportunity for early diagnosis and treatment of a gastrointestinal malignancy or disease with possible interval development of a gastrointestinal cancer or other disease with possible worsening of clinical condition in the interval between endoscopies. It was also discussed that complications are not limited to those listed above. Possible alternatives to endoscopic treatment or evaluation were discussed. All questions were answered. Continuous EKG and blood pressure monitors were attached. Supplemental oxygen was provided with O2 Sat monitoring. Patient was placed in the left lateral decubitus position. A surgical timeout was performed. All persons in the room were identified. All concerns were expressed and answered. Sedation was administered by anesthesia and titrated to comfort prior to starting procdedure. A digital rectal exam was performed. There was normal tone and no masses. The Olympus CHF 180AL video colonoscope was advanced under direct vision to the level of the cecum. The cecum was easily identified by internal landmarks. The cecum, ileocecal valve and appendiceal orifice were easily identified and photo documented. The ileocecal valve was not intubated due to marked erythema and distortion of landmarks. With colonoscope in the forward-viewing position it was slowly withdrawn and all areas were reinspected. The cecum, ascending colon , hepatic flexure, transverse colon, splenic flexure, descending colon, sigmoid colon, rectosigmoid junction, rectum and retroflexed view of the rectum all fully examined. Retroflexed view of the rectum revealed a normal mucosal and vascular pattern. Within the rectum there was white exudate. However when washed there was normal mucosa at least in the distal rectum. A biopsy was obtained from there. There was diffuse exudate throughout the colon. There were shallow ulcers throughout the sigmoid and descending colon as well as in the transverse colon. However in the descending colon there were domed areas of yellowish/greenish exudate which extended into the cecum and coated ileocecal valve. As the scope was withdrawn biopsies were obtained from the cecum. Biopsies were also obtained from the ascending colon and sigmoid colon. Air was suctioned as the scope was withdrawn from the colon. Patient tolerated the procedure well. Cecal withdrawal time: 15 minutes Colonic preparation: Dora Prep Scale Total: 9. Difficulty of Colonoscopy: Not Difficult EBL: minimal Specimens Removed: 1. Cecum 2. Ascending Colon 3. Sigmoid Colon 4. Rectum Findings: Colitis extending from the proximal rectum to the cecum Impression: Colitis extending from the proximal rectum to the cecum There are features in the ascending colon and cecum that are suggestive of C. difficile colitis. The domed yellow/green lesions were suggestive of pseudomembranes rather than Crohn's colitis. In the sigmoid and descending colon diffuse ulceration was more consistent with inflammatory bowel disease. While it is certainly possible that the patient has presented with both more information is needed to arrive at a firm diagnosis. Recommendations: 1. I've called microbiology and have asked that a stool be sent for C. difficile for PCR. They will need a fresh sample for that. 2. I've call pathology and discuss with them the differential diagnosis. I have also asked that the specimens be prepared quickly so that we can have a diagnosis within the next [address] Fox will see that that is done. 3. Cipro will be stopped. Patient will remain on Flagyl but that will be changed to 500 mg by mouth 3 times a day. 4. CBC will be repeated today. CMP and CBC will repeated in a.m. 5. Patient may have full liquid diet lactose free and low residue. 6. Will await remainder of studies prior to discharge. 7. Would start steroids, solumedrol 20 mg IV every 6 hours.
[2018-06-28 17:29] VITALS: BP 98/56
[2018-06-28 19:04] LABS: ABSOLUTE BASOPHIL COUNT 0 /CUMM (0.0-0.2); ABSOLUTE EOSINOPHIL COUNT 0.1 /CUMM (0.0-0.7); ABSOLUTE GRANULOCYTE CT 5.8 /CUMM (1.4-6.5); ABSOLUTE LYMPH COUNT 0.7 /CUMM (1.2-3.4); ABSOLUTE MONOCYTE COUNT 0.9 /CUMM (0.10-0.60); BASOPHIL % 0.1 % (0.0-2.0); EOSINOPHIL % 1.2 % (0-5); GRANULOCYTE % 76.4 % (42.2-75.2); MEAN CORPUSCULAR HGB 29.4 PG (27.0-31.0); MEAN CORPUSCULAR HGB CONC 33.5 G/DL (33.0-37.0); MEAN CORPUSCULAR VOLUME 87.8 FL (81.0-99.0); MEAN PLATELET VOLUME 9.1 FL (7.4-10.4); PLATELET COUNT 237 /CUMM (130-400); RBC DISTRIBUTION WIDTH 12.6 % (11.5-14.5); WHITE BLOOD CELL COUNT 7.6 /CUMM (4.8-10.8)
[2018-06-28 19:06] LABS: HEMATOCRIT 41.3 % (37-47)
[2018-06-28 22:13] VITALS: BP 104/52
--- NOTE | 2018-06-29 05:36 | PN- Housestaff ---
Chadwick Rodriguez 06/29/18 0535: Subjective Follow-up For: Chronic diarrhea Complaints: no complaints Subjective: She was curious about the results of colonoscopy, I talked to her about her insulin explained to her the future plan. She was also asking if we can advance her diet. Review of Systems Constitutional: Reports: no symptoms, see HPI. Objective Last 24 Hrs of Vital Signs/I&O WNL Physical Exam General Appearance: Alert, Oriented X3, Cooperative, No Acute Distress Assessment/Plan Assessment: 22-year-old female with chief complaint of chronic diarrhea and family history positive for IBD, colonoscopy has been susceptible for both C. difficile colitis or IBD. While she tolerates advance diet, she can be discharged and followed as an outpatient Problem List: 1. Diarrhea 2. Pancolitis Pain Ratin Pain Location: NA Pain Goal: Remain pain free Pain Plan: NA Tomorrow's Labs & Rationales: Berto Galarza MD 06/29/18 1444: Attending MD Review Statement Attending Statement Attending MD Statement: examined this patient, discuss w/resident/PA/KENNEL OPERATOR, agreed w/resident/PA/KENNEL OPERATOR, reviewed EMR data (avail), discussed with nursing, discussed with case mgmt, amended to note Attending Assessment/Plan: The patient was seen and discussed with house staff, nursing and case management. Agree with the plan of care as outlined. GI input appreciated. The patient will be discharged to home on po Vanco with follow-up with Dr. Camarena regarding C-diff PCR and biopsy results.
[2018-06-29 06:15] VITALS: BP 100/58
[2018-06-29] MEDS ORDERED: VANCOMYCIN HCL5 G1 PO ×2 (10:10→10:32)
[2018-06-29 10:22] LABS: ABSOLUTE BASOPHIL COUNT 0 /CUMM (0.0-0.2); ABSOLUTE EOSINOPHIL COUNT 0 /CUMM (0.0-0.7); ABSOLUTE GRANULOCYTE CT 3.4 /CUMM (1.4-6.5); ABSOLUTE LYMPH COUNT 0.4 /CUMM (1.2-3.4); ABSOLUTE MONOCYTE COUNT 0.2 /CUMM (0.10-0.60); BASOPHIL % 0.1 % (0.0-2.0); EOSINOPHIL % 0 % (0-5); HEMATOCRIT 38.7 % (37-47); MEAN CORPUSCULAR HGB 29.5 PG (27.0-31.0); MEAN CORPUSCULAR HGB CONC 33.7 G/DL (33.0-37.0); MEAN CORPUSCULAR VOLUME 87.8 FL (81.0-99.0); MEAN PLATELET VOLUME 9.6 FL (7.4-10.4); RBC DISTRIBUTION WIDTH 12.6 % (11.5-14.5); RED BLOOD CELL CT 4.41 /CUMM (4.20-5.40)
--- NOTE | 2018-06-29 10:33 | Patient Discharge Instructions ---
Discharge Instructions General Discharge Information You were seen/treated for: Diarrhea likely secondary to clostridium difficile colitis versus inflammatory bowel disease Watch for these problems: Fever, chest pain, shortness of breath Special Instructions: Please take all medications as directed. Please follow up with primary care and gastroenterology. Diet Continue normal diet: No Recommended Diet: Low Residue Activity Full Activity/No Limits: Yes Acute Coronary Syndrome Inclusion Criteria At DC or during hospital stay patient has or had the following: ACS DIAGNOSIS No Discharge Core Measures Meds if any: Prescribed or Continued at Discharge Meds if any: NOT Prescribed or Continued at Discharge Congestive Heart Failure Inclusion Criteria At DC or during hospital stay patient has or had the following: CHF DIAGNOSIS No Discharge Core Measures Meds if any: Prescribed or Continued at Discharge Meds if any: NOT Prescribed or Continued at Discharge Cerebrovascular accident Inclusion Criteria At DC or during hospital stay patient has or had the following: CVA/TIA Diagnosis No Discharge Core Measures Meds if any: Prescribed or Continued at Discharge Meds if any: NOT Prescribed or Continued at Discharge Venous thromboembolism Inclusion Criteria VTE Diagnosis No VTE Type NONE VTE Confirmed by (Test) NONE Discharge Core Measures - Per Current guidelines, there needs to be overlap - treatment for the first 5 days of Warfarin therapy. - If discharged on Warfarin prior to 5 days of - overlap therapy, the patient will need to be - assessed for post discharge needs including - *Post discharge parental anticoagulation - *Warfarin and/or parental anticoagulation education - *Follow up date to check INR post discharge At least 5 days overlap therapy as Inpatient No Meds if any: Prescribed or Continued at Discharge Note: Overlap Therapy is Warfarin and Anticoagulant Meds if any: NOT Prescribed or Continued at Discharge
[2018-06-29 10:52] LABS: GRANULOCYTE % 85.8 % (42.2-75.2); PLATELET COUNT 254 /CUMM (130-400)
[2018-06-29 14:57] VITALS: BP 108/52
[2018-06-30 01:06] LABS: C.DIFFICILE TOXIN B QL PCR DETECTED (NOT DETECTED)
== END 2018-06-29 15:15 | DRG 387 ==
LOC: ERH 11:06 → 2NA 17:14 → ERHI 17:14 → ENRESERV 18:03 → ENTRNSPT 18:47 → EDTRNSPTSTS 18:50 → 2NA 19:28 → CMPTRNSPT 19:30 → 2NA 06-28 11:34
PROVIDERS: Internal Medicine; Physician Assistant Medical
PROC: 0DBN8ZX Excision of Sigmoid Colon, Via Natural or Artificial Opening Endoscopic, Diagnostic (ICD-10-PCS; principal; 2018-06-28)
PROC: 0DBK8ZX Excision of Ascending Colon, Via Natural or Artificial Opening Endoscopic, Diagnostic (ICD-10-PCS; principal; 2018-06-28)
PROC: 0DBP8ZX Excision of Rectum, Via Natural or Artificial Opening Endoscopic, Diagnostic (ICD-10-PCS; principal; 2018-06-28)
PROC: 0DBH8ZX Excision of Cecum, Via Natural or Artificial Opening Endoscopic, Diagnostic (ICD-10-PCS; principal; 2018-06-28)
DX: K51.00 Ulcerative (chronic) pancolitis without complications (principal); R19.7 Diarrhea, unspecified; R91.8 Other nonspecific abnormal finding of lung field; D72.829 Elevated white blood cell count, unspecified
CPT/HCPCS: 2NAP; 87493; 36415; 36592; 74177; 81001; 81025; 82436; 87015; 87045; 87328; 87329; 87899; 87899-59; J0744; J1200; J1650; J1885; J2405; J2920; J7042; J7060